=== PATIENT | male | born 1990 | race Caucasian/White ===

== ENCOUNTER 2017-04-10 10:10 | Emergency (ER) | payer OTHER ==
[2017-04-10 11:01] LABS: BASOPHIL 0.3 % (0-2); EOSINOPHIL 0.3 % (0-5); HCT 45.6 % (42.0-52.0); HGB 16.2 g/dl (13.2-18.0); LYMPHOCYTE 12.2 % (15-48); MCH 29.8 pg (25.0-31.0); MCHC 35.5 g/dL (32.0-36.0); MONOCYTE 5.7 % (0-12); MPV 10.3 fL (6.0-9.5); NEUTROPHIL 81.5 % (41-80); PLT 208 K/uL (150-400); RBC 5.43 M/uL (4.70-6.00); RDW 13.7 % (11.5-14.0); WBC 7.9 K/uL (4.0-10.5)
[2017-04-10 11:10] LABS: CREATININE 0.8 mg/dL (0.7-1.2); POTASSIUM 3.6 mmol/L (3.5-5.1)
== END 2017-04-10 12:45 | disposition home or self-care (01) ==
LOC: FER 10:10
PROVIDERS: Nurse Practitioner
DX: K52.9 Noninfective gastroenteritis and colitis, unspecified (principal); S30.861A Insect bite (nonvenomous) of abdominal wall, initial encounter; W57.XXXA Bitten or stung by nonvenomous insect and other nonvenomous arthropods, initial encounter; Y93.89 Activity, other specified
CPT/HCPCS: 36415; 80048; 85025; 87804; 87899; C9113; J2405; J2765